=== PATIENT | female | born 1980 | race Two or more races ===

== ENCOUNTER 2021-10-25 18:44 | Inpatient (IN) | payer MEDICAID ==
[~2021-10-25] VITALS: Ht 170.2 cm; Wt 72.6 kg
--- NOTE | 2021-10-25 19:25 | NUR ---
BIBRA 889 FROM [place] FOR N/V/D X 3-4 HOURS. PATIENT ALERT AND ORIENTED X3. AMBULATORY WITH NON LABORED BREATHING IN BED 13 AWAITING MD MENDOZA.
--- NOTE | 2021-10-25 19:35 | NUR ---
IT PROGRAMMER AT BEDSIDE FOR EVAL.
[2021-10-25] MEDS ORDERED: ONDANSETRON HCL/PF 4 MG/2 ML VIAL IVP ONE (21:30)
[2021-10-25] MEDS ORDERED: IV NS 0.9% 1,000 ML BAG IV ONE ×2 (21:30→22:30)
[2021-10-25] MEDS ORDERED: ONDANSETRON HCL/PF 4 MG/2 ML VIAL ONE (21:32)
--- NOTE | 2021-10-25 21:43 | NUR ---
BLOOD COLLECTED AND SENT TO LAB
[2021-10-25 21:51] LABS: BASOPHILS # (AUTO) 0.1 K/uL (0.0-0.2); BASOPHILS % (AUTO) 0.3 % (0.0-2.0); EOSINOPHILS % (AUTO) 0.1 % (0.0-6.0); HEMATOCRIT 43 % (33-45); HEMOGLOBIN 14.4 g/dL (11.5-14.8); LYMPHOCYTES # (AUTO) 1.5 K/uL (0.8-4.8); LYMPHOCYTES % (AUTO) 5.9 % (20.0-44.0); MEAN CORPUSCULAR HGB CONC 33 g/dl (31.0-36.0); MEAN CORPUSCULAR VOLUME 92 fL (82-100); MONOCYTES # (AUTO) 0.9 K/uL (0.1-1.30); MONOCYTES % (AUTO) 3.7 % (2.0-12.0); NEUTROPHILS # (AUTO) 23.1 K/uL (1.8-8.9); PLATELET COUNT (AUTO) 308 K/uL (150-450); RED BLOOD CELL COUNT(AUTO) 4.69 MIL/uL (4.0-5.2); WHITE BLOOD COUNT (AUTO) 25.7 K/uL (4.3-11.0)
--- NOTE | 2021-10-25 21:56 | NUR ---
URINE COLLECTED AND SENT TO LAB
[2021-10-25 21:59] LABS: CALCIUM, SERUM 8.7 mg/dL (8.5-10.1)
[2021-10-25 22:01] LABS: POTASSIUM 2.4 mmol/L (3.5-5.1)
--- NOTE | 2021-10-25 22:01 | NUR ---
PREG WAIVER SIGNED
[2021-10-25 22:06] LABS: ALBUMIN 3.6 g/dL (3.4-5.0); BILIRUBIN,DIRECT 0.1 mg/dL (0.0-0.2); BILIRUBIN,TOTAL 0.3 mg/dL (0.2-1.0); TOTAL PROTEIN, SERUM 7.2 g/dL (6.4-8.2)
[2021-10-25 22:19] LABS: BILIRUBIN,URINE NEGATIVE (NEGATIVE); COLOR,URINE YELLOW (YELLOW); LEUKOCYTE ESTERASE ,URINE NEGATIVE (NEGATIVE); NITRITE, URINE NEGATIVE (NEGATIVE); PH,URINE 7.5 (5.0-8.0); PROTEIN,URINE NEGATIVE (NEGATIVE); UGLUCOSE NEGATIVE (NEGATIVE); UROBILINOGEN,URINE 0.2 EU/dL (0.2)
[2021-10-25] MEDS ORDERED: POTASSIUM CL. PREMIX PERIPHER. 100 ML ONE (22:21)
[2021-10-25] MEDS ORDERED: POTASSIUM CHLORIDE 20 MEQ TAB.PRT.SR PO ONE ×2 (22:22→22:30)
[2021-10-25] MEDS ORDERED: CEFTRIAXONE 1GM BAG (ER ONLY) 1 GM/50 ML PIGGYBACK IV ONE (22:30)
[2021-10-25] MEDS: POTASSIUM CL. PREMIX PERIPHER. 50 ML IV SCH (22:50)
[2021-10-25] MEDS ORDERED: CEFTRIAXONE 1GM BAG (ER ONLY) 50 ML IV ONE (22:56)
[2021-10-26] MEDS: POTASSIUM CL. PREMIX PERIPHER. 50 ML IV SCH ×4 (00:07→17:23)
[2021-10-26] MEDS ORDERED: ONDANSETRON HCL/PF - ER 4 MG/2 ML VIAL IV ONE (00:30)
[2021-10-26] MEDS ORDERED: ONDANSETRON HCL/PF 4 MG/2 ML VIAL ONE (00:37)
--- NOTE | 2021-10-26 00:41 | NUR ---
COVID SWAB DONE AND SENT TO LAB
[2021-10-26] MEDS ORDERED: LABETALOL 20 MG/4 ML VIAL IV PRN (01:00)
[2021-10-26] MEDS ORDERED: ACETAMINOPHEN 325 MG TABLET PO PRN (01:00)
[2021-10-26] MEDS ORDERED: CEFEPIME 2 GM in IV D5W 100 ML IV ONE (02:00)
[2021-10-26] MEDS ORDERED: CEFEPIME 1 GM VIAL ONE ×2 (04:28→05:12)
[2021-10-26] MEDS: IV NS 0.9% 1,000 ML IV SCH ×2 (04:45→14:37)
--- NOTE | 2021-10-26 07:40 | NUR ---
[facility] BED 316-2
--- NOTE | 2021-10-26 08:08 | NUR ---
report given to Enid MATSON for pete
[2021-10-26] MEDS ORDERED: PANT40TA49 PO (08:16)
[2021-10-26] MEDS ORDERED: TRIA1CAP20 PO (08:16)
[2021-10-26] MEDS ORDERED: AMLO-213 PO (08:16)
[2021-10-26] MEDS: POLYETHYLENE GLYCOL 3350 17 GM POWD.PACK PO SCH (09:00)
[2021-10-26] MEDS: DOCUSATE SODIUM 100 MG CAPSULE PO SCH ×2 (09:00→17:00)
[2021-10-26] MEDS ORDERED: Magnesium 1GM/D5W 100ML PREMIX 100 ML IV SCH ×2 (09:30→14:30)
[2021-10-26] MEDS: POTASSIUM CHLORIDE 20 MEQ TAB.PRT.SR PO SCH ×2 (10:27→17:32)
[2021-10-26 10:30] LABS: BASOPHILS # (AUTO) 0.1 K/uL (0.0-0.2); BASOPHILS % (AUTO) 0.2 % (0.0-2.0); HEMATOCRIT 41 % (33-45); MEAN CORPUSCULAR HGB CONC 34 g/dl (31.0-36.0); MEAN CORPUSCULAR VOLUME 92 fL (82-100); MONOCYTES # (AUTO) 0.9 K/uL (0.1-1.30); MONOCYTES % (AUTO) 3.5 % (2.0-12.0); NEUTROPHILS # (AUTO) 22.5 K/uL (1.8-8.9); NEUTROPHILS % (AUTO) 88.3 % (43.0-81.0); PLATELET COUNT (AUTO) 308 K/uL (150-450); RED BLOOD CELL COUNT(AUTO) 4.52 MIL/uL (4.0-5.2); WHITE BLOOD COUNT (AUTO) 25.4 K/uL (4.3-11.0)
[2021-10-26 10:57] LABS: ALBUMIN 3.3 g/dL (3.4-5.0); BILIRUBIN,TOTAL 0.4 mg/dL (0.2-1.0); CREATININE 0.8 mg/dL (0.6-1.3); MAGNESIUM 1.7 mg/dL (1.8-2.4)
[2021-10-26] MEDS ORDERED: LORAZEPAM INJ 2 MG/ML VIAL IV ONE (11:00)
[2021-10-26] MEDS ORDERED: MAG HYDROX/AL HYDROX/SIMETH 30 ML UDC PO PRN (11:00)
[2021-10-26 11:05] LABS: POTASSIUM 2.3 mmol/L (3.5-5.1)
[2021-10-26] MEDS: DICYCLOMINE HCL 10 MG CAPSULE PO SCH ×2 (11:55→17:32)
[2021-10-26] MEDS: PANTOPRAZOLE 40 MG TABLET.DR PO SCH ×2 (11:55→19:52)
[2021-10-26] MEDS: HEPARIN SODIUM, PORCINE 5000 UNITS/1 ML VIAL SQ SCH ×2 (14:36→21:23)
--- NOTE | 2021-10-26 15:24 | NUR ---
SS consult requested for homelessness. Pt. is a 41-year-old female who was admitted to [facility] on 10/26/2021 due to Colitis, tractable pain, nausea, hypokalemia, prolonged QT per EMR . Upon SS consult, pt. is alert and oriented x4. Pt. appears tired and continuously falling asleep throughout the interview. Pt. presented with a depressed mood and congruent affect. Pt. appears unkempt. Pt. presents with normal thought process. Pt. appears guarded. SW explored pt.s mental health Hx and pt. denies any diagnosis. Pt. denied suicidal/homicidal ideation. Pt. denied visual and auditory hallucinations. SW explored pt.s drug and alcohol use and pt. denies any use. buyer planner explored pt.s current living situation. Pt. stated she is currently experiencing homeless. Pt. stated she has no family or friends. buyer planner [place] [address] ([phone]).. Pt. will be provided with a TAP card upon discharge. Pt. will be alert and oriented x4 at discharge. Pt. stated she is ambulatory and independent with her ADLs. . Plan: Upon discharge, pt. was agreeable to go to [facility] [place] [address] ([phone]). TAP card will be provided upon discharge. Homeless waiver was signed and given to the patient and a copy was placed in the chart buyer planner provided the following homeless referrals: Year-round shelters: [facility] [address] [place] [address] ; [facility] [address] [place] [address]; [facility] [facility]. [facility] [address] Hygiene: [facility]: [address] [place] ; [facility] [address] [facility] ; [facility] [address] . Food Resources: [place] [facility] at [facility]- [address] [place]; [facility] ([facility]) [address] [address]; [facility] [address] [facility] [facility]; [facility] [address] [facility]. Mental Health resources provided: [facility] [address] [place], [place] [id number] ; [facility] [place] [facility] [address] [facility] [address], [place], [place] [id number] ; [facility] [address] [place] [address] ; [facility] [address] [place], [place] [id number] Healthcare Clinics: [facility] [address] [place]. [place] ; [facility] [address] [place] [address]; [facility] [address] [facility]. [place] [id number] [phone]
[2021-10-26 16:00] VITALS: BP 111/58
[2021-10-26] MEDS: ONDANSETRON HCL/PF 4 MG/2 ML VIAL IVP PRN (17:32)
[2021-10-26] MEDS: CEFEPIME 2 GM in IV D5W 100 ML IV SCH (17:35)
--- NOTE | 2021-10-26 19:56 | NUR ---
RESIDENT ATHLETIC TRAINER CLOSING NOTE PATIENT A/O X4. AMBULATES WITHOUT ASSIST. ADMITTED TO UNIT FOR NAUSEA, VOMITING, DIARRHEA-DX OF COLITIS. NO EPISODE OF DIARRHEA, HOWEVER PATIENT HAD EMESIS X1 & MULTIPLE C/O NAUSEA. NO VISIBLE S/SX DISTRESS, NO C/O PAIN. OBSERVED SLEEPING THROUGHOUT SHIFT. ADMITTED WITH IV ACCESS TO LAC, HOWEVER IV ACCESS INFILTRATED. RAC ACCESS PLACED BY DIRECTOR IMMUNOLOGY NURSE, HOWEVER THAT LINE INFILTRATED WELL. MIDLINE INSERTION ORDER PLACED, HOWEVER NOT CARRIED OUT AT THIS TIME. ENDORSED TO ONCOMING NURSE. SAFETY MEASURE IN PLACE AND BED IN LOWEST POSITION AND LOCKED. CALL LIGHT WITHIN REACH. WILL CONT TO MONITOR.
[2021-10-26 20:00] VITALS: BP 131/80
--- NOTE | 2021-10-26 20:22 | NUR ---
TEL RN OPENING NOTES: RECEIVED PATIENT SLEEP IN , AROUSABLE TO STIMULI, BED IN LOW POSITION CALL LIGHTS WITHIN REACH, NO COMPLAIN OF PAIN AND DISCOMFORT AT THIS TIME ON ROOM AIR SATURATING WELL, ON TELE MONITOR- SR-65, PATIENT IS A/O X4 ABLE TO MAKE NEEDS KNOWN., PATIENT KEPT CLEAN AND DRY ALL NEEDS MET WILL CONTINUE TO MONITOR.
[2021-10-27] VITALS: BP 121/57
[2021-10-27] MEDS: DICYCLOMINE HCL 10 MG CAPSULE PO SCH ×4 (00:45→19:56)
[2021-10-27] MEDS: POTASSIUM CL. PREMIX PERIPHER. 50 ML IV SCH ×5 (01:30→05:46)
[2021-10-27] MEDS: MORPHINE SULFATE INJ 2 MG/ML DISP.SYRIN IV PRN ×2 (02:31→13:10)
[2021-10-27] MEDS ORDERED: POTASSIUM CL. PREMIX PERIPHER. 200 ML ONE (02:31)
[2021-10-27] MEDS: ONDANSETRON HCL/PF 4 MG/2 ML VIAL IVP PRN ×2 (04:51→13:05)
[2021-10-27 05:00] VITALS: BP 161/100
[2021-10-27] MEDS: CEFEPIME 2 GM in IV D5W 100 ML IV SCH ×2 (06:52→17:35)
--- NOTE | 2021-10-27 07:30 | NUR ---
TEL RN OPENING NOTES: RECEIVED PATIENT ASLEEP BUT EASILY ROUSED. A/O X4 AND ABLE TO MAKE NEEDS KNOWN. NO S/S OF SOB AND ACUTE DISTRESS NOTED, ON RA TOLERATING WELL. TELE MONITOR READING SR, HR: 77. IV ACCESS, KAYLEE MIDLINE, PATENT AND FLUSHING WELL. SAFETY MEASURES IN PLACE: HOB ELEVATED, LOCKED IN LOWEST POSITION. CALL LIGHTS AND TABLE WITHIN REACH, NO COMPLAINTS OF PAIN AND DISCOMFORT AT THIS TIME, WILL CONT TO MONITOR.
--- NOTE | 2021-10-27 07:45 | NUR ---
DIRECTOR CHECK CLOSING NOTES: PATIENT SLEEP IN BED COMFORTABLY, AROUSABLE TO VERBAL STIMULI, BED IN LOW POSITION CALL LIGHTS WITHIN REACH, NO COMPLAIN OF PAIN AND DISCOMFORT AT THIS TIME, ON ROOOM AIR SATURATING WELL, PATIENT ON TELE [id number], NO SYMPTOMS WAS OBSERVED, PATIENT KEPT CLEAN AND DRY ALL NEEDS MET ENDORSE TO INCOMING SHIFT.
[2021-10-27 08:00] VITALS: BP_SYST 128; BP_SYST 147; BP_DIAS 84; BP_DIAS 86
[2021-10-27] MEDS: PANTOPRAZOLE 40 MG TABLET.DR PO SCH ×2 (09:06→19:54)
[2021-10-27] MEDS: POLYETHYLENE GLYCOL 3350 17 GM POWD.PACK PO SCH (09:06)
[2021-10-27] MEDS: DOCUSATE SODIUM 100 MG CAPSULE PO SCH ×2 (09:06→16:03)
[2021-10-27] MEDS: HEPARIN SODIUM, PORCINE 5000 UNITS/1 ML VIAL SQ SCH ×2 (09:08→21:19)
[2021-10-27 11:38] LABS: BASOPHILS % (AUTO) 0.3 % (0.0-2.0); EOSINOPHILS % (AUTO) 0.1 % (0.0-6.0); HEMATOCRIT 41 % (33-45); HEMOGLOBIN 13.6 g/dL (11.5-14.8); LYMPHOCYTES # (AUTO) 2.6 K/uL (0.8-4.8); LYMPHOCYTES % (AUTO) 19.6 % (20.0-44.0); MEAN CORPUSCULAR HGB CONC 33 g/dl (31.0-36.0); MEAN CORPUSCULAR VOLUME 93 fL (82-100); MONOCYTES # (AUTO) 0.7 K/uL (0.1-1.30); NEUTROPHILS # (AUTO) 9.8 K/uL (1.8-8.9); PLATELET COUNT (AUTO) 299 K/uL (150-450); RED BLOOD CELL COUNT(AUTO) 4.44 MIL/uL (4.0-5.2); WHITE BLOOD COUNT (AUTO) 13.1 K/uL (4.3-11.0)
[2021-10-27 12:06] LABS: ALBUMIN 3.1 g/dL (3.4-5.0); BILIRUBIN,TOTAL 0.3 mg/dL (0.2-1.0); CALCIUM, SERUM 8.3 mg/dL (8.5-10.1); CREATININE 0.9 mg/dL (0.6-1.3); PHOSPHORUS 2.1 mg/dL (2.5-4.9); POTASSIUM 3.4 mmol/L (3.5-5.1); TOTAL PROTEIN, SERUM 6.4 g/dL (6.4-8.2)
[2021-10-27] MEDS ORDERED: POTASSIUM CHLORIDE 20 MEQ TAB.PRT.SR PO ONE (12:30)
[2021-10-27] MEDS ORDERED: K PHOS NEUTRAL 250 MG TABLET PO ONE (15:30)
--- NOTE | 2021-10-27 19:31 | NUR ---
RN OPENING NOTE PATIENT IN BED, AWAKE. PATIENT IS A/O X 4, ABLE TO MAKE NEEDS KNOWN. PATIENT IS ON RA, TOLERATING WELL. PATIENT IS ON TELE MONITOR READING SR 79 BPM. PATIENT DOES NOT REPORT OF ANY PAIN AT THIS TIME OR N/V. PATIENT HAS A KAYLEE MIDLINE, PATENT AND INTACT. PATIENT NOT IN ANY APPARENT DISTRESS. SAFETY MEASURES IN PLACE: BED LOCKED AND IN LOWEST POSITION, CALL LIGHT WITHIN REACH, SIDE RAILS UP. WILL MONITOR PATIENT CLOSELY.
[2021-10-27 20:00] VITALS: BP 139/81
--- NOTE | 2021-10-27 20:01 | NUR ---
LINING PRINTER CLOSING NOTES: PATIENT ASLEEP BUT EASILY ROUSED. A/O X4 AND ABLE TO MAKE NEEDS KNOWN. NO S/S OF SOB AND ACUTE DISTRESS NOTED, ON RA TOLERATING WELL. TELE MONITOR READING SR, HR: 77. IV ACCESS, KAYLEE MIDLINE, PATENT AND FLUSHING WELL. SAFETY MEASURES IN PLACE: HOB ELEVATED, LOCKED IN LOWEST POSITION. CALL LIGHTS AND TABLE WITHIN REACH, NO COMPLAINTS OF PAIN AND DISCOMFORT AT THIS TIME, WILL CONT TO MONITOR.
[2021-10-28] VITALS: BP 121/75
[2021-10-28 00:30] VITALS: BP 149/95
[2021-10-28] MEDS: DICYCLOMINE HCL 10 MG CAPSULE PO SCH ×4 (00:48→17:23)
[2021-10-28] MEDS: CEFEPIME 2 GM in IV D5W 100 ML IV SCH (05:39)
[2021-10-28 06:53] LABS: BASOPHILS % (AUTO) 0.4 % (0.0-2.0); EOSINOPHILS % (AUTO) 0.7 % (0.0-6.0); HEMATOCRIT 38 % (33-45); LYMPHOCYTES # (AUTO) 3.8 K/uL (0.8-4.8); LYMPHOCYTES % (AUTO) 35.5 % (20.0-44.0); MEAN CORPUSCULAR HGB CONC 35 g/dl (31.0-36.0); MEAN CORPUSCULAR VOLUME 92 fL (82-100); MONOCYTES # (AUTO) 0.7 K/uL (0.1-1.30); MONOCYTES % (AUTO) 6.5 % (2.0-12.0); NEUTROPHILS # (AUTO) 6.2 K/uL (1.8-8.9); NEUTROPHILS % (AUTO) 56.9 % (43.0-81.0); PLATELET COUNT (AUTO) 285 K/uL (150-450); WHITE BLOOD COUNT (AUTO) 10.8 K/uL (4.3-11.0)
[2021-10-28 07:12] LABS: CALCIUM, SERUM 8.3 mg/dL (8.5-10.1); CREATININE 1.1 mg/dL (0.6-1.3); PHOSPHORUS 2.8 mg/dL (2.5-4.9); POTASSIUM 3.1 mmol/L (3.5-5.1)
--- NOTE | 2021-10-28 07:17 | NUR ---
RN CLOSING NOTE PATIENT IN BED, EYES CLOSED. PATIENT IS A/O X 4, ABLE TO MAKE NEEDS KNOWN. PATIENT IS ON RA, TOLERATING WELL. PATIENT IS ON TELE MONITOR READING SR 88 BPM. PATIENT DOES NOT REPORT OF ANY PAIN AT THIS TIME OR N/V. PATIENT HAS A KAYLEE MIDLINE, PATENT AND INTACT. PATIENT NOT IN ANY APPARENT DISTRESS. SAFETY MEASURES IMPLEMENTED. NO SIGNIFICANT CHANGES DURING THE SHIFT. ALL NEEDS MET AND ATTENDED. ALL ORDERS CARRIED OUT.
--- NOTE | 2021-10-28 07:30 | NUR ---
CUPOLA HOIST OPERATOR OPENING NOTES RECEIVED PATIENT IN BED, AWAKE AND A/O X 4, ABLE TO MAKE NEEDS KNOWN. ON ROOM AIR TOLERATING WELL. ON TELE MONITOR READING SR 76 BPM. WITH NO COMPLAINTS OF PAIN OR DISCOMFORT AT THIS TIME. WITH IV ACCESS AT THE KAYLEE MIDLINE, SALINE LOCKED, PATENT AND INTACT. SAFETY MEASURES IN PLACED. CALL LIGHT WITHIN REACH. BD ON LOWEST LOCKED POSITION, SIDE RAILS UP X2. WILL CONTINUE TO MONITOR.
[2021-10-28] MEDS: POLYETHYLENE GLYCOL 3350 17 GM POWD.PACK PO SCH (08:24)
[2021-10-28] MEDS: DOCUSATE SODIUM 100 MG CAPSULE PO SCH ×2 (08:24→17:23)
[2021-10-28] MEDS: PANTOPRAZOLE 40 MG TABLET.DR PO SCH ×2 (08:24→20:01)
[2021-10-28] MEDS: HEPARIN SODIUM, PORCINE 5000 UNITS/1 ML VIAL SQ SCH ×2 (08:32→22:02)
[2021-10-28 08:40] VITALS: BP 154/95
[2021-10-28] MEDS: POTASSIUM CHLORIDE 20 MEQ TAB.PRT.SR PO SCH ×2 (10:24→11:28)
[2021-10-28] MEDS: ONDANSETRON HCL/PF 4 MG/2 ML VIAL IVP PRN (10:35)
[2021-10-28] MEDS: MORPHINE SULFATE INJ 2 MG/ML DISP.SYRIN IV PRN (12:59)
[2021-10-28] MEDS: METRONIDAZOLE 500 MG TABLET PO SCH ×2 (12:59→22:01)
[2021-10-28] MEDS ORDERED: HALOPERIDOL LACTATE INJ 5 MG/ML VIAL IV PRN (15:30)
[2021-10-28 16:15] VITALS: BP 118/76
--- NOTE | 2021-10-28 18:42 | NUR ---
MS RN CLOSING NOTES PATIENT IN BED, RESTING AND A/O X 4, ABLE TO MAKE NEEDS KNOWN. ON ROOM AIR TOLERATING WELL. WITH COMPLAINTS OF PAIN IN THE ABDOMEN AT THE SCALE OF 5/10 AND NAUSEA. COMFORT MEASURES PROVIDED. WITH IV ACCESS AT THE KAYLEE MIDLINE, SALINE LOCKED, PATENT AND INTACT. DUE MEDS GIVEN. SAFETY MEASURES IN PLACED. CALL LIGHT WITHIN REACH. BD ON LOWEST LOCKED POSITION, SIDE RAILS UP X2. WILL ENDORSE TO NEXT SHIFT FOR PABLO.
--- NOTE | 2021-10-28 19:40 | NUR ---
TELERN FULLY AWAKE, NO COMPLAINTS MADE. STATED WAS NAUSEATED EARLIER. VERBALIZES UNABLE TO EAT MAIN MEAL WITHOUT SMOKING WEED. DISCUSSED RISKS FACTORS, LIOSTENS FOR AWHILE. STATED SHE WILL BE DISCHARGE TOMORROW AND HAS NO PLACE TO GO. CM FOR PLACEMENT FOR PATIENTS' SAFETY. ALL NEEDS MADE. CONTINUED.
[2021-10-28 20:00] VITALS: BP 144/88
[2021-10-28 20:58] VITALS: BP 144/88
--- NOTE | 2021-10-28 22:00 | NUR ---
TELERN DUE MEDS GIVEN, VERBALIZES KING. STATED WANTED IMITREX AND HAS HER OWN AT PHARMACY. OFFERED OTHER OPTION DECLINED. STATED WANTED TO SMOKE OUTSIDE. ADVISED TIME FRAME AND NOT ALLOWED TO SMOKE WEED. GOOD LISTENER.EPT COMFORTABLE ALL NEEDS ATTENDED.
[2021-10-28] MEDS: CIPROFLOXACIN HCL 250 MG TABLET PO SCH (22:01)
[2021-10-29] VITALS: BP 149/95
[2021-10-29] MEDS: DICYCLOMINE HCL 10 MG CAPSULE PO SCH ×3 (00:11→11:16)
--- NOTE | 2021-10-29 00:13 | NUR ---
TELERN EASILY AWAKENED WHEN CALLED. DUE MED ADMINISTERED. SR ON THE MONITOR.
[2021-10-29 04:00] VITALS: BP 133/75
[2021-10-29] MEDS: METRONIDAZOLE 500 MG TABLET PO SCH ×2 (06:15→12:59)
--- NOTE | 2021-10-29 06:15 | NUR ---
TELERN DUE MEDS ADMINISTERED, NO COMPLAINTS MADE. CONTINUED MONITORING
--- NOTE | 2021-10-29 07:04 | NUR ---
MS RN OPENING NOTES RECEIVED PATIENT SLEEPING IN BED. A/O x4, EASILY AROUSED, ON ROOM AIR. NO S/S OF RESPIRATORY DISTRESS. IV ACCESS ON KAYLEE MIDLINE #18G SL. PATIENT IS CONTINENT USES BATHROOM. AMBULATORY, STEADY GAIT. SKIN INTACT, PATIENT DENIES ANY PAIN OR DISCOMFORT AT THIS TIME. SAFETY MEASUREMENTS IN PLACE: BED LOCKED AND IN LOWEST POSITION, SIDE RAILS UP x2, CALL LIGHT WITHIN REACH. WILL CONTINUE TO MONITOR.
[2021-10-29 07:13] LABS: BASOPHILS # (AUTO) 0.1 K/uL (0.0-0.2); BASOPHILS % (AUTO) 0.4 % (0.0-2.0); EOSINOPHILS % (AUTO) 0.7 % (0.0-6.0); HEMATOCRIT 41 % (33-45); HEMOGLOBIN 14.4 g/dL (11.5-14.8); LYMPHOCYTES # (AUTO) 3.4 K/uL (0.8-4.8); LYMPHOCYTES % (AUTO) 23.4 % (20.0-44.0); MEAN CORPUSCULAR HGB CONC 35 g/dl (31.0-36.0); MEAN CORPUSCULAR VOLUME 90 fL (82-100); MONOCYTES # (AUTO) 1.3 K/uL (0.1-1.30); MONOCYTES % (AUTO) 8.9 % (2.0-12.0); NEUTROPHILS # (AUTO) 9.6 K/uL (1.8-8.9); NEUTROPHILS % (AUTO) 66.6 % (43.0-81.0); PLATELET COUNT (AUTO) 297 K/uL (150-450); RED BLOOD CELL COUNT(AUTO) 4.56 MIL/uL (4.0-5.2); WHITE BLOOD COUNT (AUTO) 14.4 K/uL (4.3-11.0)
[2021-10-29 07:44] LABS: CALCIUM, SERUM 8.7 mg/dL (8.5-10.1); CREATININE 1.1 mg/dL (0.6-1.3); MAGNESIUM 2.1 mg/dL (1.8-2.4); PHOSPHORUS 3.8 mg/dL (2.5-4.9)
[2021-10-29 07:52] LABS: POTASSIUM 2.8 mmol/L (3.5-5.1)
[2021-10-29 08:00] VITALS: BP 128/76
[2021-10-29] MEDS: ONDANSETRON HCL/PF 4 MG/2 ML VIAL IVP PRN (09:12)
--- NOTE | 2021-10-29 09:15 | NUR ---
RN NOTES PATIENT WAS FEELING NAUSEA, NO EPISODES OF VOMITING. PRN ZOFRAN ADMINISTERED @0912, WILL CONTINUE TO MONITOR.
[2021-10-29] MEDS: DOCUSATE SODIUM 100 MG CAPSULE PO SCH (09:29)
[2021-10-29] MEDS: PANTOPRAZOLE 40 MG TABLET.DR PO SCH (09:29)
[2021-10-29] MEDS: CIPROFLOXACIN HCL 250 MG TABLET PO SCH (09:30)
[2021-10-29] MEDS: HEPARIN SODIUM, PORCINE 5000 UNITS/1 ML VIAL SQ SCH (09:32)
[2021-10-29] MEDS: POLYETHYLENE GLYCOL 3350 17 GM POWD.PACK PO SCH (09:32)
[2021-10-29] MEDS ORDERED: POTASSIUM CHLORIDE 20 MEQ TAB.PRT.SR PO SCH (11:00)
[2021-10-29] MEDS ORDERED: ONDA4TAB11 PO (13:41)
[2021-10-29] MEDS ORDERED: METR500T PO (13:41)
[2021-10-29] MEDS ORDERED: DICY10CA37 PO (13:41)
[2021-10-29] MEDS ORDERED: CIPR-263 PO (13:41)
--- NOTE | 2021-10-29 16:00 | NUR ---
HAT MAKER NOTES PATIENT DISCHARGED HOME STABLE A/Ox4 ABLE TO MAKE NEEDS KNOWN. IV ACCESS REMOVED, PRESSURE DRESSING IN PLACE, NO S/S OF BLEEDING. DISCHARGE INSTRUCTIONS AND HEALTH TEACHINGS GIVEN AND EXPLAINED TO PATIENT. PATIENT VERBALIZED UNDERSTANDING. INSTRUCTIONS AND BELONGING LIST SIGNED, COPIED AND FILED INTO PATIENT'S CHART. 5 BOTTLES OF MEDICATION PICKED UP FROM PHARMACY RETURNED TO PATIENT. PATIENT LEFT UNIT @1558, ACCOMPANIED BY FRANCHESKA SOLANO VIA WHEELCHAIR. PATIENT WAS DISCHARGED FROM HOSPITAL, HOMELESS, GIVEN A BUS TAP CARD AND ACCOMPANIED BY FAMILY, LEFT VIA BUS. CHARGE NURSE AND MD AWARE OF DISCHARGE.
== END 2021-10-29 16:00 | disposition home or self-care (01) | DRG 720 ==
LOC: ER 18:47 → TRANSITION 10-26 00:55 → TELE 10-26 08:10 → MED 10-28 11:23
PROVIDERS: ADMIT Nurse Practitioner Family; ATTEND Nurse Practitioner Family
PROC: 05H933Z Insertion of Infusion Device into Right Brachial Vein, Percutaneous Approach (ICD-10-PCS; principal; 2021-10-27)
DX: A41.9 Sepsis, unspecified organism (principal); E83.39 Other disorders of phosphorus metabolism; E87.1 Hypo-osmolality and hyponatremia; E87.6 Hypokalemia; I10 Essential (primary) hypertension; K52.9 Noninfective gastroenteritis and colitis, unspecified; Z20.822 Contact with and (suspected) exposure to COVID-19; Z59.00 Homelessness unspecified; E83.42 Hypomagnesemia; R94.31 Abnormal electrocardiogram [ECG] [EKG]; K21.9 Gastro-esophageal reflux disease without esophagitis; M19.90 Unspecified osteoarthritis, unspecified site; E88.09 Other disorders of plasma-protein metabolism, not elsewhere classified; Z87.891 Personal history of nicotine dependence; F12.90 Cannabis use, unspecified, uncomplicated; M51.36 Other intervertebral disc degeneration, lumbar region
CPT/HCPCS: 36415; 71045-TC; 80048-TC; 80053-TC; 80076-TC; 83605-TC; 83690-TC; 83735-TC; 84100-TC; 84484-TC; 84703-TC; 85025-TC; 85730-TC; 87040-TC; 87081-TC; 87086-TC; G0378; J0692; J0696; J1644; J2060; J2270; J2405; J3475; J3480; J7030; J7050; J7060